=== PATIENT | male | born 1950 | race African-American/Black ===

== ENCOUNTER 2017-05-24 05:39 | Inpatient (IN) | payer MEDICARE, MEDICAID ==
[~2017-05-24] VITALS: Ht 175.3 cm; Wt 72.1 kg
[~2017-05-24 05:39] MED LIST: ATOR10TA69 PO; HYDR-522 PO; IBUP-1510 PO; LOSA50TA20 PO; METF500T4 PO; [UNRECOGNIZED DRUG - OTHER]
[2017-05-24 06:24] LABS: BASOPHILS % 1.1 % (0.0-2.0); EOSINOPHILS % 1.5 % (0.0-5.0); HEMATOCRIT. 35.7 % (42.0-52.0); LYMPHOCYTES % 46.4 % (20.0-50.0); MEAN CORPUSCULAR HEMOGLOBIN 29.6 pg (28.0-32.0); MEAN CORPUSCULAR VOLUME 88.1 fL (80.0-94.0); MEAN PLATELET VOLUME 8.3 fl (7.4-10.4); MONOCYTES % 12.5 % (2.0-8.0); NEUTROPHILS % 38.5 % (40.0-76.0); PLATELET 193 x1000/uL (130-400); RED BLOOD CELL COUNT 4.06 mill/uL (4.7-6.1); RED CELL DISTRIBUTION WIDTH 15.3 % (11.6-14.6)
[2017-05-24 06:35] LABS: CLARITY URINE CLEAR (CLEAR); COLOR URINE DARK YELLOW (YELLOW); GLUCOSE URINE NEGATIVE (NEGATIVE); KETONES URINE TRACE (NEGATIVE); LEUKOCYTE ESTERASE URINE NEGATIVE (NEGATIVE); NITRITE URINE NEGATIVE (NEGATIVE); OCCULT BLOOD URINE NEGATIVE (NEGATIVE); PH URINE 5.5 (4.5-8.0); PROTEIN URINE NEGATIVE (NEGATIVE); SPECIFIC GRAVITY URINE 1.029 (1.005-1.030)
[2017-05-24 06:40] LABS: CARBON DIOXIDE 29 mEq/L (21-32); CHLORIDE 106 mEq/L (98-107); PARTIAL THROMBOPLASTIN TIME 27.8 sec (24.0-34.0); PROTHROMBIN TIME 10.2 sec
[2017-05-24] MEDS ORDERED: LACTATED RINGERS 1,000 ML IV SCH (06:40)
[2017-05-24] MEDS ORDERED: MORPHINE SULFATE/PF 1MG/ML 10ML AMP ONE (07:22)
[2017-05-24] MEDS ORDERED: NORMAL SALINE 0.9% 10 ML SYR ONE (07:22)
[2017-05-24] MEDS ORDERED: BACITRACIN ZINC 15GM TUBE TOP ONE (07:22)
[2017-05-24] MEDS ORDERED: BUPIVACAINE/EPINEPH/PF 0.25%/0.0005 10ML ONE ×2 (07:22→07:23)
[2017-05-24] MEDS ORDERED: BACITRACIN 50,000 UNITS/VIAL ONE (07:23)
[2017-05-24] MEDS ORDERED: TRANEXAMIC ACID 1,000 MG in SODIUM CHLORIDE 0.9% 100 ML IV NR (07:30)
[2017-05-24] MEDS ORDERED: MIDAZOLAM HCL 2 MG/2 ML VIAL ONE (07:52)
[2017-05-24] MEDS ORDERED: FENTANYL CITRATE/PF 50MCG/ML 2ML VIAL ONE (07:53)
[2017-05-24] MEDS ORDERED: ROCURONIUM BROMIDE 10MG/ML VIAL 5ML IV ONE ×3 (07:54→10:47)
[2017-05-24] MEDS ORDERED: PROPOFOL 200MG/20ML VIAL IV ONE (07:54)
[2017-05-24] MEDS ORDERED: LIDOCAINE HCL 1% 20ML VIAL (Pyxis) INJ ONE (07:54)
[2017-05-24] MEDS ORDERED: CEFAZOLIN SODIUM 1000MG/VIAL ONE ×2 (07:54→08:05)
[2017-05-24] MEDS ORDERED: PHENYLEPHRINE HCL 10 MG/ML 1ML (IV VIAL) IV ONE (08:55)
[2017-05-24] MEDS ORDERED: SODIUM CHLORIDE 0.9% 1,000 ML IV SCH (09:17)
[2017-05-24] MEDS ORDERED: ONDANSETRON HCL 4MG/2ML VIAL ONE (09:28)
[2017-05-24] MEDS ORDERED: METOCLOPRAMIDE HCL 10MG/2ML VIAL IV PRN (09:30)
[2017-05-24] MEDS ORDERED: ALBUMIN HUMAN 12.5G/250ML (5%) IV ONE ×2 (09:34→09:52)
[2017-05-24] MEDS ORDERED: GLYCOPYRROLATE 0.2 MG/ML 2ML VIAL ONE (11:58)
[2017-05-24] MEDS ORDERED: NEOSTIGMINE METHYLSULFATE 1MG/ML 10 ML VIAL ONE (11:58)
[2017-05-24] MEDS: HYDROMORPHONE HCL/PF 2MG/ML CPJ IV PRN ×2 (12:33→12:44)
[2017-05-24] MEDS ORDERED: NALOXONE INJ IV PRN (12:45)
[2017-05-24] MEDS ORDERED: ONDANSETRON INJ IV PRN (12:45)
[2017-05-24] MEDS ORDERED: ONDANSETRON HCL 4MG/2ML VIAL IV PRN (12:45)
[2017-05-24] MEDS ORDERED: HYDROCODONE/ACETAMINOPHEN 10/325MG TABLET PO PRN (12:45)
[2017-05-24] MEDS ORDERED: MAGNESIUM HYDROXIDE 400MG/5ML 30ML UDC PO PRN (12:45)
[2017-05-24] MEDS ORDERED: ACETAMINOPHEN 325MG TABLET PO PRN (12:45)
[2017-05-24] MEDS ORDERED: HYDROMORPHONE PCA 10MG/50ML IV PRN (12:45)
[2017-05-24] MEDS ORDERED: DEXTROSE 50% WATER 50ML SYRINGE IV PRN ×2 (13:30→15:15)
[2017-05-24 15:30] VITALS: BP 141/85
[2017-05-24 15:45] VITALS: BP 141/85
[2017-05-24] MEDS: BLOOD SUGAR DIAGNOSTIC STRIP TEST SCH ×2 (17:20→20:49)
[2017-05-24] MEDS: INSULIN LISPRO 100 UNITS/ML SUBCUT SCH ×2 (17:42→20:50)
[2017-05-24] MEDS: FERROUS SULFATE 325MG TABLET PO SCH (18:05)
[2017-05-24] MEDS: CEFAZOLIN 2,000 MG in DEXT 5% WATER 100 ML IV SCH (18:05)
[2017-05-24 20:00] VITALS: BP 90/56
[2017-05-24] MEDS ORDERED: ZOLPIDEM TARTRATE 5MG TABLET PO PRN (21:00)
[2017-05-25] VITALS: BP 106/56
[2017-05-25] MEDS: CEFAZOLIN 2,000 MG in DEXT 5% WATER 100 ML IV SCH ×2 (01:10→09:29)
[2017-05-25 04:00] VITALS: BP 99/60
[2017-05-25] MEDS: HYDROCODONE/ACETAMINOPHEN 10/325MG TABLET PO PRN ×3 (05:45→20:59)
[2017-05-25 06:43] LABS: CARBON DIOXIDE 29 mEq/L (21-32); CHLORIDE 104 mEq/L (98-107)
[2017-05-25 06:58] LABS: BASOPHILS % 0.2 % (0.0-2.0); EOSINOPHILS % 0.1 % (0.0-5.0); HEMATOCRIT. 29.8 % (42.0-52.0); HEMOGLOBIN. 9.9 g/dL (14.0-18.0); LYMPHOCYTES % 13.3 % (20.0-50.0); MEAN CORPUSCULAR HEMOGLOBIN 29.5 pg (28.0-32.0); MEAN CORPUSCULAR VOLUME 88.7 fL (80.0-94.0); MEAN PLATELET VOLUME 8.9 fl (7.4-10.4); MONOCYTES % 13.9 % (2.0-8.0); NEUTROPHILS % 72.5 % (40.0-76.0); PLATELET 151 x1000/uL (130-400); RED BLOOD CELL COUNT 3.37 mill/uL (4.7-6.1); RED CELL DISTRIBUTION WIDTH 14.9 % (11.6-14.6)
[2017-05-25] MEDS: BLOOD SUGAR DIAGNOSTIC STRIP TEST SCH ×4 (07:16→21:00)
[2017-05-25] MEDS: INSULIN LISPRO 100 UNITS/ML SUBCUT SCH ×4 (07:50→21:00)
[2017-05-25 08:00] VITALS: BP 107/65
[2017-05-25] MEDS ORDERED: ENOXAPARIN 40MG/0.4ML SYR SUBCUT SCH (09:00)
[2017-05-25] MEDS: LOSARTAN POTASSIUM 50 MG TABLET PO SCH (09:29)
[2017-05-25] MEDS: FERROUS SULFATE 325MG TABLET PO SCH ×3 (09:29→17:13)
[2017-05-25] MEDS: ATORVASTATIN CALCIUM 10MG TABLET PO SCH (09:29)
[2017-05-25] MEDS: DOCUSATE SODIUM 100MG CAPSULE PO SCH (09:29)
[2017-05-25] MEDS: RIVAROXABAN 10 MG TABLET PO SCH (09:29)
[2017-05-25 12:00] VITALS: BP 97/62
[2017-05-25 16:00] VITALS: BP 92/58
[2017-05-25] MEDS ORDERED: METFORMIN HCL 500MG TABLET PO SCH (17:00)
[2017-05-25 20:00] VITALS: BP 131/70
[2017-05-26] VITALS: BP 98/69
[2017-05-26 04:00] VITALS: BP 111/69
[2017-05-26] MEDS: BLOOD SUGAR DIAGNOSTIC STRIP TEST SCH ×2 (06:41→12:20)
[2017-05-26 06:44] LABS: BASOPHILS % 0.3 % (0.0-2.0); HEMATOCRIT. 27.1 % (42.0-52.0); HEMOGLOBIN. 9.1 g/dL (14.0-18.0); LYMPHOCYTES % 12.7 % (20.0-50.0); MEAN CORPUSCULAR HEMOGLOBIN 29.6 pg (28.0-32.0); MEAN CORPUSCULAR VOLUME 88.6 fL (80.0-94.0); MEAN PLATELET VOLUME 8.7 fl (7.4-10.4); MONOCYTES % 12.8 % (2.0-8.0); NEUTROPHILS % 74.2 % (40.0-76.0); PLATELET 127 x1000/uL (130-400); RED BLOOD CELL COUNT 3.06 mill/uL (4.7-6.1)
[2017-05-26] MEDS: INSULIN LISPRO 100 UNITS/ML SUBCUT SCH ×2 (07:19→12:50)
[2017-05-26 08:00] VITALS: BP 127/71
[2017-05-26 08:04] LABS: CARBON DIOXIDE 26 mEq/L (21-32); CHLORIDE 102 mEq/L (98-107)
[2017-05-26] MEDS: DOCUSATE SODIUM 100MG CAPSULE PO SCH (08:51)
[2017-05-26] MEDS: LOSARTAN POTASSIUM 50 MG TABLET PO SCH (08:51)
[2017-05-26] MEDS: FERROUS SULFATE 325MG TABLET PO SCH ×2 (08:51→13:06)
[2017-05-26] MEDS: ATORVASTATIN CALCIUM 10MG TABLET PO SCH (08:52)
[2017-05-26] MEDS: HYDROCODONE/ACETAMINOPHEN 10/325MG TABLET PO PRN ×2 (08:52→14:49)
[2017-05-26] MEDS: RIVAROXABAN 10 MG TABLET PO SCH (08:52)
[2017-05-26 12:00] VITALS: BP 90/57
[2017-05-26 15:34] VITALS: BP 95/57
[2017-05-26 16:00] VITALS: BP 91/58
== END 2017-05-26 17:20 | disposition home health service (06) | DRG 470 ==
LOC: OR 05:39 → 6EST 15:21
PROVIDERS: ADMIT Internal Medicine; ATTEND Internal Medicine
PROC: 30233N1 Transfusion of Nonautologous Red Blood Cells into Peripheral Vein, Percutaneous Approach (ICD-10-PCS; 2017-05-24)
PROC: 0SRB04Z Replacement of Left Hip Joint with Ceramic on Polyethylene Synthetic Substitute, Open Approach (ICD-10-PCS; principal; 2017-05-24 07:30)
DX: M16.12 Unilateral primary osteoarthritis, left hip (principal); D50.0 Iron deficiency anemia secondary to blood loss (chronic); D72.829 Elevated white blood cell count, unspecified; E11.9 Type 2 diabetes mellitus without complications; E66.9 Obesity, unspecified; E78.5 Hyperlipidemia, unspecified; F17.210 Nicotine dependence, cigarettes, uncomplicated; G89.29 Other chronic pain; I11.0 Hypertensive heart disease with heart failure; I50.9 Heart failure, unspecified; Z82.49 Family history of ischemic heart disease and other diseases of the circulatory system; Z88.8 Allergy status to other drugs, medicaments and biological substances
CPT/HCPCS: 36415; 73502; 80048; 81003; 82947; 82962; 85025; 85610; 85730; 86850; 86900; 86920; 88304; 88311; 93970; 97110; 97116; 97162; 97166; 97530; 97535; A4216; C1776; C1893; J0171; J0690; J1170; J2250; J2274; J2370; J2405; J2704; J2710; J3010; J3490; J7050; J7060; J7120; P9016; P9041

== ENCOUNTER 2017-06-07 10:21 | Emergency (ER) | payer MEDICARE, MEDICAID ==
[~2017-06-07] VITALS: Ht 180.3 cm; Wt 121.0 kg
[2017-06-07 12:21] LABS: CLARITY URINE CLEAR (CLEAR); COLOR URINE YELLOW (YELLOW); GLUCOSE URINE NEGATIVE (NEGATIVE); KETONES URINE TRACE (NEGATIVE); LEUKOCYTE ESTERASE URINE NEGATIVE (NEGATIVE); NITRITE URINE NEGATIVE (NEGATIVE); OCCULT BLOOD URINE TRACE (NEGATIVE); PROTEIN URINE NEGATIVE (NEGATIVE); SPECIFIC GRAVITY URINE 1.027 (1.005-1.030)
[2017-06-07 12:54] LABS: EOSINOPHILS % 1.6 % (0.0-5.0); HEMATOCRIT. 27.9 % (42.0-52.0); LYMPHOCYTES % 30.4 % (20.0-50.0); MEAN CORPUSCULAR HEMOGLOBIN 29.3 pg (28.0-32.0); MEAN CORPUSCULAR VOLUME 90.5 fL (80.0-94.0); MEAN PLATELET VOLUME 7.2 fl (7.4-10.4); MONOCYTES % 8.6 % (2.0-8.0); NEUTROPHILS % 58.4 % (40.0-76.0); PLATELET 382 x1000/uL (130-400); RED BLOOD CELL COUNT 3.08 mill/uL (4.7-6.1); RED CELL DISTRIBUTION WIDTH 15.4 % (11.6-14.6)
[2017-06-07 13:11] LABS: CARBON DIOXIDE 27 mEq/L (21-32); CHLORIDE 102 mEq/L (98-107); CREATINE KINASE 174 IU/L (39-308); TROPONIN I 0.03 ng/mL (0.00-0.04)
[2017-06-07 13:13] LABS: D-DIMER 8.95 mg/L FEU (<0.50); INR 1.2; PROTHROMBIN TIME 12.4 sec
[2017-06-07 15:20] VITALS: BP 134/80
== END 2017-06-07 15:21 | disposition home or self-care (01) ==
LOC: ER 11:20 → CANBEDREQ 23:07
DX: R60.9 Edema, unspecified (principal); R31.9 Hematuria, unspecified; I10 Essential (primary) hypertension; E11.9 Type 2 diabetes mellitus without complications; F17.200 Nicotine dependence, unspecified, uncomplicated; Z88.6 Allergy status to analgesic agent
CPT/HCPCS: 36415; 71010; 80053; 81001; 82550; 83605; 83690; 83880; 84484; 85025; 85379; 85610; 85730; 87040; 93005; 93970; 99285

== ENCOUNTER 2019-08-05 05:09 | Inpatient (IN) | payer MEDICARE, MEDICAID ==
[~2019-08-05] VITALS: Ht 180.3 cm; Wt 121.6 kg
[~2019-08-05 05:09] MED LIST changes: -IBUP-1510 PO; +IBUP-2030 PO; -LOSA50TA20 PO; +LOSA50TA41 PO; +METF-414 PO; -METF500T4 PO
[2019-08-05 06:29] LABS: BASOPHILS % 0.9 % (0.0-2.0); HEMATOCRIT. 36.7 % (42.0-52.0); HEMOGLOBIN. 12.3 g/dL (14.0-18.0); LYMPHOCYTES % 28.3 % (20.0-50.0); MEAN CORPUSCULAR HEMOGLOBIN 30.7 pg (28.0-32.0); MEAN CORPUSCULAR VOLUME 92.2 fL (80.0-94.0); MEAN PLATELET VOLUME 7.6 fl (7.4-10.4); NEUTROPHILS % 58.8 % (40.0-76.0); PLATELET 218 x1000/uL (130-400); RED BLOOD CELL COUNT 3.99 mill/uL (4.7-6.1); RED CELL DISTRIBUTION WIDTH 15.5 % (11.6-14.6)
[2019-08-05] MEDS ORDERED: SODIUM CHLORIDE 0.9% 1,000 ML IV SCH (06:30)
[2019-08-05 06:32] LABS: CLARITY URINE CLEAR (CLEAR); COLOR URINE YELLOW (YELLOW); KETONES URINE TRACE (NEGATIVE); LEUKOCYTE ESTERASE URINE NEGATIVE (NEGATIVE); NITRITE URINE NEGATIVE (NEGATIVE); OCCULT BLOOD URINE TRACE (NEGATIVE); PH URINE 5.5 (4.5-8.0); PROTEIN URINE NEGATIVE (NEGATIVE); SPECIFIC GRAVITY URINE 1.022 (1.005-1.030)
[2019-08-05 06:36] LABS: CHLORIDE 107 mEq/L (98-107)
[2019-08-05 06:38] LABS: PARTIAL THROMBOPLASTIN TIME 30.1 sec (23.4-31.0); PROTHROMBIN TIME 10.5 sec (9.6-11.0)
[2019-08-05] MEDS ORDERED: TRANEXAMIC ACID 1,000 MG/10 ML IV STA (06:45)
[2019-08-05] MEDS ORDERED: BUPIVACAINE/EPINEPH/PF 0.25%/0.0005 10ML ONE (06:51)
[2019-08-05] MEDS ORDERED: MORPHINE SULFATE/PF 1MG/ML 10ML AMP ONE (06:51)
[2019-08-05] MEDS ORDERED: BACITRACIN 50,000 UNITS/VIAL ONE (06:52)
[2019-08-05] MEDS ORDERED: VANCOMYCIN HCL 500 MG/VIAL ONE (06:52)
[2019-08-05] MEDS ORDERED: TRANEXAMIC ACID 1,000 MG in SODIUM CHLORIDE 0.9% 100 ML IV NR (07:00)
[2019-08-05] MEDS ORDERED: ZOLPIDEM TARTRATE 5MG TABLET PO PRN (07:30)
[2019-08-05] MEDS ORDERED: ONDANSETRON HCL 4MG/2ML INJ IV PRN ×2 (07:30→09:15)
[2019-08-05] MEDS ORDERED: MAGNESIUM HYDROXIDE 400MG/5ML 30ML UDC PO PRN (07:30)
[2019-08-05] MEDS ORDERED: HYDROCODONE/ACETAMINOPHEN 10/325MG TABLET PO PRN ×2 (07:30)
[2019-08-05] MEDS ORDERED: NEOSTIGMINE METHYLSULFATE 1MG/ML 10 ML VIAL ONE (07:55)
[2019-08-05] MEDS ORDERED: GLYCOPYRROLATE 0.2 MG/ML 2ML VIAL ONE ×3 (07:55→11:52)
[2019-08-05] MEDS ORDERED: ROCURONIUM BROMIDE 10MG/ML VIAL 5ML IV ONE (07:55)
[2019-08-05] MEDS ORDERED: MIDAZOLAM HCL 2 MG/2 ML VIAL ONE ×2 (07:55→10:03)
[2019-08-05] MEDS ORDERED: PROPOFOL 200MG/20ML VIAL IV ONE (07:55)
[2019-08-05] MEDS ORDERED: FENTANYL CITRATE/PF 50MCG/ML 2ML VIAL ONE (07:55)
[2019-08-05] MEDS ORDERED: DEXAMETHASONE 4MG/ML 1ML VIAL ONE (09:02)
[2019-08-05] MEDS ORDERED: ONDANSETRON HCL 4MG/2ML INJ ONE (09:02)
[2019-08-05] MEDS ORDERED: MULT-1116 PO (09:12)
[2019-08-05] MEDS ORDERED: DOCU100T PO (09:12)
[2019-08-05] MEDS ORDERED: DIPH25CA83 PO (09:12)
[2019-08-05] MEDS ORDERED: SITA50TA3 PO (09:12)
[2019-08-05] MEDS ORDERED: MEPERIDINE HCL/PF 25MG/ML CPJ IV PRN (09:15)
[2019-08-05] MEDS ORDERED: LABETALOL 5MG/ML SYR 20 MG/4 ML SYRINGE IV PRN (09:15)
[2019-08-05] MEDS ORDERED: HYDROMORPHONE HCL/PF 2MG/ML CPJ IV PRN (09:15)
[2019-08-05] MEDS ORDERED: VECURONIUM BROMIDE 10 MG/VIAL IV ONE (10:01)
[2019-08-05] MEDS ORDERED: NALOXONE INJ IV PRN (12:45)
[2019-08-05] MEDS ORDERED: HYDROMORPHONE PCA 10MG/50ML IV PRN (12:45)
[2019-08-05] MEDS ORDERED: DIPHENHYDRAMINE INJ IV PRN (12:45)
[2019-08-05] MEDS ORDERED: ONDANSETRON INJ IV PRN (12:45)
[2019-08-05 13:44] LABS: BG BASE EXCESS -3.3 mmol/L (-2.0-2.0); BG CARBOXYHEMOGLOBIN 0.7 % (0.5-1.5); BG DEOXYHEMOGLOBIN 6.6 % (0.0-5.0); BG HCO3 ACT 23.1 mmol/L (22.0-26.0); BG METHEMOGLOBIN 0.1 % (0.0-1.5); BG OXYGEN SATURATION 93.3 % (92.0-98.5); BG OXYHEMOGLOBIN 92.6 % (94.0-97.0); BG PCO2 46.9 mmHg (35.0-45.0); BG PO2 71.7 mmHg (75.0-100.0); BG SAMPLE SITE RIGHT BRACHIAL; BG TOTAL HEMOGLOBIN 12.5 g/dL (12.0-18.0); BG VENT MODE NASAL CANNULA
[2019-08-05 16:00] VITALS: BP 102/52
[2019-08-05 16:22] VITALS: BP 115/76
[2019-08-05] MEDS: DOCUSATE SODIUM 100MG CAPSULE PO SCH (17:00)
[2019-08-05] MEDS ORDERED: DEXTROSE 50% WATER 50ML SYRINGE IV PRN (17:00)
[2019-08-05] MEDS: BLOOD SUGAR DIAGNOSTIC STRIP TEST SCH ×2 (17:20→20:45)
[2019-08-05] MEDS: INSULIN LISPRO (LOW DOSE) 100 UNITS/ML SUBCUT SCH ×2 (17:50→20:49)
[2019-08-05] MEDS: CEFAZOLIN 2,000 MG in DEXT 5% WATER 100 ML IV SCH (18:57)
[2019-08-05 20:00] VITALS: BP 103/71
[2019-08-05] MEDS: ATORVASTATIN CALCIUM 10MG TABLET PO SCH (20:45)
[2019-08-06] VITALS: BP 98/66
[2019-08-06] MEDS: CEFAZOLIN 2,000 MG in DEXT 5% WATER 100 ML IV SCH (01:53)
[2019-08-06 04:00] VITALS: BP 98/60
[2019-08-06] MEDS: ACETAMINOPHEN 325MG TABLET PO PRN ×2 (04:37→22:13)
[2019-08-06] MEDS: BLOOD SUGAR DIAGNOSTIC STRIP TEST SCH ×4 (06:20→21:02)
[2019-08-06] MEDS: INSULIN LISPRO (LOW DOSE) 100 UNITS/ML SUBCUT SCH ×4 (06:22→21:00)
[2019-08-06 07:27] LABS: BASOPHILS % 0.3 % (0.0-2.0); HEMOGLOBIN. 9.9 g/dL (14.0-18.0); LYMPHOCYTES % 18.9 % (20.0-50.0); MEAN CORPUSCULAR HEMOGLOBIN 30.3 pg (28.0-32.0); MEAN CORPUSCULAR VOLUME 91.8 fL (80.0-94.0); MEAN PLATELET VOLUME 7.7 fl (7.4-10.4); MONOCYTES % 13.8 % (2.0-8.0); PLATELET 194 x1000/uL (130-400); RED BLOOD CELL COUNT 3.27 mill/uL (4.7-6.1); RED CELL DISTRIBUTION WIDTH 15.7 % (11.6-14.6)
[2019-08-06 08:35] LABS: CHLORIDE 105 mEq/L (98-107)
[2019-08-06 08:42] LABS: LDL CHOLESTEROL 95 mg/dL (5-100)
[2019-08-06 08:43] LABS: HDL CHOLESTEROL 37 mg/dL (40-59)
[2019-08-06] MEDS: DOCUSATE SODIUM 100MG CAPSULE PO SCH ×2 (08:45→17:47)
[2019-08-06] MEDS: ENOXAPARIN 30MG/0.3ML SYR SUBCUT SCH ×2 (08:45→20:52)
[2019-08-06] MEDS: LOSARTAN POTASSIUM 50 MG TABLET PO SCH ×2 (08:46→08:50)
[2019-08-06] MEDS ORDERED: ENOXAPARIN 40MG/0.4ML SYR SUBCUT SCH (09:00)
[2019-08-06] MEDS ORDERED: INSULIN LISPRO 100 UNITS/ML SUBCUT SCH (12:20)
[2019-08-06 20:00] VITALS: BP 112/72
[2019-08-06] MEDS: ATORVASTATIN CALCIUM 10MG TABLET PO SCH (20:51)
[2019-08-07] VITALS: BP 112/67
[2019-08-07 04:00] VITALS: BP 130/82
[2019-08-07] MEDS: BLOOD SUGAR DIAGNOSTIC STRIP TEST SCH ×2 (06:35→12:54)
[2019-08-07] MEDS: INSULIN LISPRO (LOW DOSE) 100 UNITS/ML SUBCUT SCH ×2 (07:50→12:50)
[2019-08-07 08:00] VITALS: BP 125/76
[2019-08-07] MEDS: LOSARTAN POTASSIUM 50 MG TABLET PO SCH (10:50)
[2019-08-07] MEDS: DOCUSATE SODIUM 100MG CAPSULE PO SCH (10:50)
[2019-08-07] MEDS: ENOXAPARIN 30MG/0.3ML SYR SUBCUT SCH (10:51)
[2019-08-07 12:00] VITALS: BP 122/70
[2019-08-07 16:00] VITALS: BP 120/73
[2019-08-07 17:18] VITALS: BP 122/70
== END 2019-08-07 18:07 | disposition home health service (06) | DRG 470 ==
LOC: OR 05:09 → 6EST 05:10 → UNDODISIN 08-06 23:30
PROVIDERS: ADMIT Orthopaedic Surgery; ATTEND Orthopaedic Surgery
PROC: 0SR904A Replacement of Right Hip Joint with Ceramic on Polyethylene Synthetic Substitute, Uncemented, Open Approach (ICD-10-PCS; principal; 2019-08-05)
DX: M16.11 Unilateral primary osteoarthritis, right hip (principal); E87.2 Acidosis; M65.9 Synovitis and tenosynovitis, unspecified; E66.9 Obesity, unspecified; E11.9 Type 2 diabetes mellitus without complications; D72.821 Monocytosis (symptomatic); D64.9 Anemia, unspecified; E78.5 Hyperlipidemia, unspecified; I11.0 Hypertensive heart disease with heart failure; I50.9 Heart failure, unspecified; F17.210 Nicotine dependence, cigarettes, uncomplicated; R09.02 Hypoxemia; Z96.642 Presence of left artificial hip joint; R31.9 Hematuria, unspecified; R82.4 Acetonuria; G89.29 Other chronic pain; Z68.37 Body mass index [BMI] 37.0-37.9, adult; Q65.89 Other specified congenital deformities of hip; Z79.84 Long term (current) use of oral hypoglycemic drugs; Z88.8 Allergy status to other drugs, medicaments and biological substances
CPT/HCPCS: 36415; 36600; 73502; 80048; 80061; 81003; 82375; 82805; 82962; 83036; 86850; 86900; 88305; 88311; 93005; 97110; 97116; 97162; 97166; 97535; C1776; J0171; J0690; J1100; J1170; J1650; J2250; J2274; J2405; J2704; J2710; J3010; J3370; J3490; J7050; J7060